=== PATIENT | male | born 1945 | race African-American/Black ===

== ENCOUNTER 2018-09-18 09:56 | Emergency (ER) | payer MEDICARE, MEDICAID ==
[~2018-09-18] VITALS: Ht 177.8 cm; Wt 96.0 kg
[~2018-09-18 09:56] MED LIST: aspirin
[2018-09-18 11:19] VITALS: BP 177/77
[2018-09-18] MEDS ORDERED: SODIUM CHLORIDE 0.9% 1,000 ML IV ONE (13:34)
== END 2018-09-18 13:55 | disposition left against medical advice (07) ==
LOC: ER 09:56
DX: R10.13 Epigastric pain (principal); R19.7 Diarrhea, unspecified; I10 Essential (primary) hypertension
CPT/HCPCS: 99281; J7030